=== PATIENT | male | born 1990 ===

== ENCOUNTER 2025-03-27 16:14 | Outpatient (AMB) | payer BC, SELFPAY ==
[2025-03-27 16:41] VITALS: BP 109/70; PULSE 70; RESP 18; TEMP 36.6; O2SAT 96; BMI 24.2
--- NOTE | 2025-03-27 16:41 | ACNOTE_ITS ---
Vital Signs 03/27/25 16:41 Height 1.85 m Height Method Stated Weight 83.178 kg Weight Measurement Method Standing Scale BMI 24.2 BP 109/70 Blood Pressure Source Automatic Cuff Blood Pressure Location Right Upper Arm Position Sitting Respiration 18 Pulse 70 Pulse Source Monitor Temp 97.8 F Temp Source Temporal Artery Scan Pulse Oximetry (%) 96 Oxygen Delivery Method Room Air Allergies/Meds Allergies & Medications Allergies pollen extracts Allergy (Intermediate, Verified 03/27/25 17:38) Nasal Discharge cats Allergy (Intermediate, Uncoded 03/27/25 17:38) Hives Medication Reconciliation diclofenac sodium 1 % topical gel (Arthritis Pain (diclofenac)) 2 g topical QID PRN back pain #100 grams 03/27/25 [Rx] lidocaine 5 % topical patch 1 patch topical QDAY PRN back pain 14 days #15 ea 03/27/25 [Rx] MA Intake Visit Data Collection New Patient or Established: New Patient (never been to [facility]) Seen by Clinical Staff ONLY (RN/MA): No Pain Present Currently: No Pain scale:: 0 Pain Scale Used: Vera-Valencia/Numerical Geodetic Surveyor Required: No PCP or OBGYN visit in last 3 months: No Hx Now: No Do You Feel Safe at Home: Yes Authorities Contacted: N/A Smoking Status Smoking Status: Never smoker Immunization / Flu Flu Vaccine in the Last 12 Months: No Flu Vaccine Exclusion Criteria: No Exclusion Criteria Past Medical History Social History SMOKING STATUS: Smoking status: Never smoker Patient Portal Questionaires Social History Tobacco History Smoking Status: Never smoker Domestic Abuse History Do You Feel Safe at Home: Yes Review of Systems Report any current symptoms Only answer those that you have currently: Past Medical History Past Medical History Have you ever been diagnosed with any of the following: History of Present Illness HPI Narrative HPI: Patient is a 34-year-old male with a past medical history of pollen and cat allergy presenting today to [facility] care. His main concern is lower back pain which radiates to his left heel with a tingling sensation. This has been ongoing for the past 3 to 4 months worsens with activities such as hiking or walking long distances. He describes the pain as sharp, shooting and can occur at anytime of the day but is present at baseline, 7/10 in intensity. He also endorses doing daily stretching exercises, but this has minimal effect on his pain. Sometimes he uses [id number] acetaminophen and topical herbal remedies which provide him minimal relief. Will order physical therapy referral, lumbar spine x-ray, topical diclofenac and lidocaine patch. Follow-up appointment in 1 month. 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 Patent nares. Trachea midline Respiratory Chest normal on inspection and clear auscultation bilaterally Cardiovascular S1 and S2 audible, RRR. No murmurs carotid bruit. No gross JVD. Abdominal Soft and non tender to palpation in all quadrants. BS + Genitourinary No bladder tenderness, no flank pain. Normal to palpation Musculoskeletal Extremities tone within normal limits. No LE edema. Neurological CN II - XII grossly intact. Extremity motor and sensation grossly intact. Straight Leg raise positive on left. Skin Warm, dry and intact. No apparent lesions. Psychiatric Patient has good affect, is cooperative Assessment & Plan Diagnosis / Problem List (1) Lumbar radiculopathy: Status: Acute Assessment & Plan: His main concern is lower back pain which radiates to his left heel with a tingling sensation. This has been ongoing for the past 3 to 4 months worsens with activities such as hiking or walking long distances. He describes the pain as sharp, shooting and can occur at anytime of the day but is present at baseline, 7/10 in intensity. He also endorses doing daily stretching exercises, but this has minimal effect on his pain. Sometimes he uses [id number] acetaminophen and topical herbal remedies which provide him minimal relief. Will order physical therapy referral, lumbar spine x-ray, topical diclofenac and lidocaine patch. Follow-up appointment in 1 month. Plan: - Physical Therapy Referral - Lidocaine patch and topical diclofenac PRN - Lumbar spine XR - F/U in 1 month Plan Plan of care discussed with Attending Dr. Milagro Mccarty MD PGY 2 Disclaimer: This note was dictated by speech recognition. Minor errors in profile trimmer may be present due to voice recognition software. Orders: Orders XR lumbar spine 2-3V 03/27/25 M54.16 - Radiculopathy, lumbar region Referrals Physical Therapy - Referral M54.16 - Radiculopathy, lumbar region Additional Assessment Attending note: I, Jayson Humphrey MD, attest that I was physically present for the jasso portions of the service and evaluated the patient with the resident and I revie wed and discussed the case with the resident and agree with the resident's findings and plans of care as documented above. Jayson Humphrey MD Physician Billing New Patient New Patient: E/M Level 3-CPT 65551 Office Procedures [facility] Level of Care Nursing/Assessment Patient Status: Initial/New Patient Nursing Assessment/Reassessment: Medication Reconciliation, Update PMH in EMR and Vital Signs Coordination of Care: Complex Care and Chronic Disease 1-5, Consent,records obtained, informed consent, Education Simp Pt/Fam, Lab and Imaging orders and Staff clarify orders New Patient Charge New Patient Point Assignment: [id number] New Patient Point Charge: MEDICAL LEAD Level 3 ([id number])
== END 2025-03-27 17:11 | disposition home or self-care (01) ==
LOC: HODAHC 16:14
PROVIDERS: Supervising Provider Internal Medicine
DX: M54.16 Radiculopathy, lumbar region (principal)
CPT/HCPCS: 99213; G0463

== ENCOUNTER → 2025-03-29 | Outpatient (CLI) | payer BC, SELFPAY ==
--- NOTE | 2025-03-29 14:32 | XR_ITS ---
Examination: Lumbar spine 3 views TECHNIQUE: AP lateral coned lateral lower lumbar spine 3 views Date and time: March 29, 2025 1439 hours INDICATIONS: Low back pain beginning 3 months ago. FINDINGS: Adequate alignment lumbar vertebral bodies Mild disc narrowing L5-S1 No spondylolisthesis No fracture IMPRESSION: Mild disc narrowing L5-S1
== END | disposition home or self-care (01) ==
DX: M48.07 Spinal stenosis, lumbosacral region (principal)
CPT/HCPCS: 72100

== ENCOUNTER 2025-04-24 11:17 | Outpatient (AMB) | payer BC, SELFPAY ==
[2025-04-24 11:30] VITALS: BP 117/70; PULSE 95; RESP 18; TEMP 36.9; O2SAT 98; BMI 29.0
--- NOTE | 2025-04-24 11:30 | PD.RESCLINIC ---
Vital Signs 04/24/25 11:30 Height 1.68 m Height Method Stated Weight 81.647 kg Weight Measurement Method Standing Scale BMI 29.0 BP 117/70 Blood Pressure Source Automatic Cuff Blood Pressure Location Right Upper Arm Position Sitting Respiration 18 Pulse 95 Pulse Source Monitor Temp 98.5 F Temp Source Temporal Artery Scan Pulse Oximetry (%) 98 Oxygen Delivery Method Room Air Allergies/Meds Allergies & Medications Allergies pollen extracts Allergy (Intermediate, Verified 03/27/25 17:38) Nasal Discharge cats Allergy (Intermediate, Uncoded 03/27/25 17:38) Mirian NAVARRO Intake Visit Data Collection New Patient or Established: Established Patient (seen at [facility] within 3 years) Seen by Clinical Staff ONLY (RN/MA): No Reason for Visit:: FOLLOW UP Pain Present Currently: No PCP or OBGYN visit in last 3 months: Yes Date of Last PCP or OBGYN visit: 03/27/25 Do You Feel Safe at Home: Yes Authorities Contacted: N/A Smoking Status Smoking Status: Never smoker Immunization / Flu Flu Vaccine in the Last 12 Months: Yes Flu Vaccine Exclusion Criteria: No Exclusion Criteria Past Medical History Social History SMOKING STATUS: Smoking status: Never smoker Patient Portal Questionaires Social History Tobacco History Smoking Status: Never smoker Domestic Abuse History Do You Feel Safe at Home: Yes Review of Systems Report any current symptoms Only answer those that you have currently: Past Medical History Past Medical History Have you ever been diagnosed with any of the following: History of Present Illness HPI Narrative HPI: Patient is a 34-year-old male with a past medical history of pollen and cat allergy presenting today to [facility]. His main concern is lower back pain which radiates to his left heel with a tingling sensation. This has been ongoing for the past 3 to 4 months worsens with activities such as hiking or walking long distances. He describes the pain as sharp, shooting and can occur at anytime of the day but is present at baseline, 7/10 in intensity. He also endorses doing daily stretching exercises, but this has minimal effect on his pain. Sometimes he uses [id number]-[id number]-[id number] acetaminophen and topical herbal remedies which provide him minimal relief. Will order physical therapy referral, lumbar spine x-ray, topical diclofenac and lidocaine patch. Follow-up appointment in 1 month. 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 However upon my review there appears to be more than mild narrowing especially on the left. Also patient reports that he is still experiences symptoms of numbness and pain especially in his left lower extremity at least 3 times a week. He works at [employer] and is mostly on his feet due to his work. Despite oral and topical analgesics his symptoms persist. He also does home physical therapy exercises for his lumbar spine and was prescribed to outpatient physical therapy, however minimal improvement so far. Today we will refill his prescription for lidocaine patch and order MR lumbar spine to better visualize any nerve compression and disc involvement. Patient was offered the option of a short course of prednisone for his symptoms, however he is hesitant at this time to try steroid treatment and opts for analgesic and physical therapy alone. Objective/Exam Narrative Physical exam: Constitutional Alert, oriented x 3 and comfortable HEENT Vision grossly intact. Patent nares. Trachea midline Respiratory Chest normal on inspection and clear auscultation bilaterally Cardiovascular S1 and S2 audible, RRR. No murmurs carotid bruit. No gross JVD. Abdominal Soft and non tender to palpation in all quadrants. BS + Genitourinary No bladder tenderness, no flank pain. Normal to palpation Musculoskeletal Extremities tone within normal limits. No LE edema. Neurological CN II - XII grossly intact. Extremity motor and sensation grossly intact. Straight Leg raise positive on left. Skin Warm, dry and intact. No apparent lesions. Psychiatric Patient has good affect, is cooperative Assessment & Plan Diagnosis / Problem List (1) Lumbar radiculopathy: Status: Acute Assessment & Plan: Patient had lumbar spine x-ray done which did not show mild disc narrowing at L5/S1. However upon my review there appears to be more than mild narrowing especially on the left. Also patient reports that he is still experiences symptoms of numbness and pain especially in his left lower extremity at least 3 times a week. He works at [employer] and is mostly on his feet due to his work. Despite oral and topical analgesics his symptoms persist. He also does home physical therapy exercises for his lumbar spine and was prescribed to outpatient physical therapy, however minimal improvement so far. Today we will refill his prescription for lidocaine patch and order MR lumbar spine to better visualize any nerve compression and disc involvement. Patient was offered the option of a short course of prednisone for his symptoms, however he is hesitant at this time to try steroid treatment and opts for analgesic and physical therapy alone. Plan: - MR lumbar spine without contrast ordered - Physical therapy referral - Refilled lidocaine patch - F/U in 1 month with results Plan Plan of care discussed with Attending Dr. Milagro Mccarty MD PGY 2 Disclaimer: This note was dictated by speech recognition. Minor errors in stringed instrument repairer may be present due to voice recognition software. Orders: Orders MR lumbar spine wo con Today M54.16 - Radiculopathy, lumbar region Office Procedures [facility] Level of Care Nursing/Assessment Patient Status: Established Patient Nursing Assessment/Reassessment: Medication Reconciliation, Update PMH in EMR and Vital Signs Coordination of Care: Complex Care and Chronic Disease 1-5, Consent,records obtained, informed consent, Lab and Imaging orders and Results/Orders obtained Established Patient Charge Established Patient Point Assignment: 80 Established Patient Point Charge: Level 3 ([id number])
== END 2025-04-24 13:54 | disposition home or self-care (01) ==
LOC: HODAHC 11:17
PROVIDERS: Supervising Provider Internal Medicine
DX: M54.16 Radiculopathy, lumbar region (principal); M48.07 Spinal stenosis, lumbosacral region
CPT/HCPCS: 99213; G0463